=== PATIENT | male | born 1935 | race Caucasian/White ===

== ENCOUNTER 2019-04-14 14:27 | Emergency (ER) | payer MEDICARE, OTHER, SELFPAY ==
[2019-04-14 14:30] VITALS: BP 137/81; PULSE 70; RESP 20; TEMP 36.9; O2SAT 99; BMI 28.1
--- NOTE | 2019-04-14 14:59 | DI.RAD.S_ITS ---
PROCEDURE: XR CHEST 2V INDICATIONS: dyspnea, orthopnea, hx of CHF TECHNIQUE: 2 views of the chest were acquired. COMPARISON: [facility], , CHEST 1 VIEW, 08/20/2011, 13:18. [facility], , CHEST 1 VIEW, 08/19/2011, 14:50. CT chest, abdomen and pelvis 08/24/2011. FINDINGS: Surgical changes and devices: None. Lungs and pleura: Prominent pulmonary vasculature. No pleural effusions or pneumothorax. Mediastinum: Mediastinal contours are normal. Heart size is normal. Bones and chest wall: No suspicious bony abnormalities. Soft tissues appear unremarkable. IMPRESSION: Prominent pulmonary vasculature. Dictated by: Herrera Pina M.D. on 04/14/2019 at 15:59 Approved by: Herrera Pina M.D. on 04/14/2019 at 16:01
--- NOTE | 2019-04-14 14:59 | DI.RAD.S_ITS ---
PROCEDURE: XR ABDOMEN MIN 2V INDICATIONS: abdominal distention TECHNIQUE: 2 views of the abdomen were acquired. COMPARISON: [facility], , ABDOMEN 1 VIEW, 04/10/2011, 14:06. CT chest, abdomen and pelvis 08/24/2011. FINDINGS: Surgical changes and devices: Percutaneous right nephrostomy tube or less likely drainage catheter in the right abdomen. IVC filter. Left double-J ureteral stent. Bowel: Prominent gas-filled colon in the midabdomen. No pneumoperitoneum identified. No air-fluid levels demonstrated. Soft tissues: No masses; visualized solid organ contours appear normal in size. No suspicious abdominal calcifications. 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 No suspicious bony abnormalities. Heterotopic ossification in the right groin. IMPRESSION: 1. Marked colonic gaseous distention in the lower abdomen. This could be due to ileus, megacolon, or obstruction from volvulus. -CT abdomen and pelvis if prior performed outside would be helpful for further evaluation. 2. Tubes and lines project in the expected locations. Dictated by: Herrera Pina M.D. on 04/14/2019 at 16:01 Approved by: Herrera Pina M.D. on 04/14/2019 at 16:08
[2019-04-14 15:13] LABS: Add Manual Diff / Slide Review NO; Basophils Absolute Auto 100 /uL (0-100); Eosinophils Absolute Auto 100 /uL (0-450); Eosinophils Percent Auto 0.8 % (2-4); Hematocrit 36.4 % (41-53); Lymphocytes Absolute Auto 800 /uL (1100-4500); Lymphocytes Percent Auto 9.1 % (25-40); Mean Corpuscular Hemoglobin 31.4 PG (26-34); Mean Corpuscular Volume 95.1 fL (80-100); Monocytes Absolute Auto 700 /uL (0-900); Neutrophils Absolute Auto 7600 /uL (1500-7000); Neutrophils Percent Auto 81.1 % (50-75); Platelet Count 320 X10^3/uL (150-400); Red Blood Cell Count 3.83 X10^6/uL (4.5-5.9); Red Cell Distribution Width 14.7 % (11.6-14.8); White Blood Cell Count 9.3 X10^3/uL (4.5-11.0)
[2019-04-14 15:18] LABS: Alanine Aminotransferase 25 IU/L (21-72); Albumin 4.1 g/dL (3.5-5.0); Albumin Globulin Ratio 1.2 (1.0-2.8); Alkaline Phosphatase 96 U/L (38-126); Aspartate Aminotransferase 37 IU/L (17-59); BUN Creatinine Ratio 28.7 (6-22); Bilirubin Total 0.6 mg/dL (0.2-1.3); Blood Urea Nitrogen 43 mg/dL (9-20); Calcium 9.2 mg/dL (8.4-10.2); Carbon Dioxide 34 mmol/L (22-32); Chloride 99 mmol/L (98-107); Creatine Kinase 87 U/L (55-170); Estimated Glomerular Filt Rate 44.8 mL/min (>60); Globulin 3.5 g/dL (1.7-4.1); Glucose 131 mg/dL (80-110); HEMOLYSIS < 15 (0-50); Lipase 197 U/L (23-300); Potassium 4.8 mmol/L (3.4-5.1); Sodium 139 mmol/L (137-145); Total Protein 7.6 g/dL (6.3-8.2)
[2019-04-14 15:30] LABS: Troponin I 0.021 ng/mL (0.01-0.034)
[2019-04-14 15:43] LABS: B Type Natriuretic Peptide 239 (<100)
[2019-04-14 15:50] LABS: Bacteria Urine Occasional (0-1); Granular Casts Urine 0-1/LPF; Hyaline Casts Urine 0-1/LPF; RBC Urine 30-100/HPF (0-5/HPF); Renal Epithelial Cells Urine 0-1/HPF (0-1/HPF); Squamous Epithelial Cell Urine 1-5 /HPF (0-5/HPF); Transitional Epi Cells Urine 0-1/HPF (0-5/HPF); WBC Urine 30-100/HPF (0-5/HPF)
[2019-04-14 15:51] LABS: Culture Indicated Urine Specimen Cultured; Other Casts Urine Mixed Cellular Casts
--- NOTE | 2019-04-14 16:24 | DI.CT.S_ITS ---
PROCEDURE: CT ABDOMEN PELVIS W CON INDICATIONS: abd distention, dyspnea, orthopnea TECHNIQUE: After the administration of oral and intravenous contrast, 5 mm thick sections acquired from the diaphragms to the symphysis. 5 mm thick coronal and sagittal reformats were performed. For radiation dose reduction, the following was used: automated exposure control, adjustment of mA and/or kV according to patient size. COMPARISON: [facility], CT, CHEST ABDOMEN PELVIS WITH CONTRAST, 08/24/2011, 13:02. [facility], CR, XR ABDOMEN MIN 2V, 04/14/2019, 15:02. FINDINGS: Image quality: Excellent. ABDOMEN: Lung bases: Lung bases are clear. Heart size is enlarged. Solid organs: Liver is normal in size and enhancement. Gallbladder is not visualized. Biliary system is non-dilated. Pancreas enhances normally. Spleen is normal in size and enhancement. No adrenal nodules. Demonstrate bilateral cysts mildly enlarged compared to prior exam and the largest is present on the right measuring 49 mm. Right-sided nephrostomy tube is present with distal tip in the renal pelvis. There is no hydronephrosis. The right kidney demonstrates mild hydronephrosis and proximal hydroureter. Double-J stent is present. Distal tip appears to be along the margin of the lumen at the bladder wall. However, bladder is poorly distended with a diffusely thickened wall and Forrest catheter. Proximal tip is identified within the renal pelvis. This is new compared to 2012. Peritoneum and bowel: Significant stool is present throughout the colon particularly within the ascending and transverse colon. There mildly dilated fluid filled loops of small bowel identified within the mid abdomen. Transition point is not clearly identified.. Nodes and vessels: No retroperitoneal or mesenteric adenopathy. Aorta and inferior vena cava are normal in caliber. Inferior vena cava filter is present. As note several of the prongs appear at the medial vena cava wall possibly extending beyond the wall. Overall appearance has not changed. Miscellaneous: No ventral hernias. PELVIS: Genitourinary: Bladder wall thickness is normal. Miscellaneous: No inguinal hernias or adenopathy. Bones: No suspicious bony lesions. No vertebral body compression fractures. Previous right hip surgical change. IMPRESSION: 1. Dilated fluid-filled loops of small bowel consistent with partial small bowel obstruction. This may be secondary to constipation. However, no definitive transition point is identified. 2. Right nephrostomy tube. Left ureterovesicular stone with mild hydronephrosis and proximal hydroureter. Dictated by: Fabiana Gomez M.D. on 04/14/2019 at 17:38 Approved by: Fabiana Gomez M.D. on 04/14/2019 at 17:47
--- NOTE | 2019-04-14 16:25 | ED_ITS ---
HPI - Abdominal Pain <JEOVANY Arredondo - Last Filed: 04/15/19 00:06> General Chief Complaint: Abdominal Pain Stated Complaint: ABD Distention Time Seen by Provider: 04/14/19 14:29 Source: EMS Mode of arrival: EMS Limitations: no limitations and physical limitation History of Present Illness HPI narrative: This is a 83-year-old male, nonsmoker, who presents to ED via EMS from [facility] with orthopnea, dyspnea with little exertion, abdominal distension for last 2 days. 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 Patient denies nausea, vomiting, fever or chills. Patient noticed 14 lb of weight gain over 4 days. Patient reports no flatulence for last 24 hours and he felt improved when he passes gas. Patient recently was diagnosed with CHF, AFib, acute kidney injury from prolonged use of Bactrim for about 10 years and has right side nephrostomy at [facility] and right-sided kidney along Forrest in placed. He had multiple right hip dislocations and had femur fracture and other complications such as infection. His highest creatinine level was 9 and now is close to 1.0 according to patient. The patient reports his bowel habits about every 4 days but since his stay at [facility], they have been treating him with bowel regimen that he goes to bowel movement frequently with loose stool. Patient reports last bowel movement was about 1 hour ago prior coming into ED. Related Data Home Medications Medication Instructions Recorded Confirmed digoxin [Lanoxin] 0.125 mg PO DAILY #0 08/19/11 04/14/19 diltiazem HCl [Tiazac] 120 mg PO DAILY #0 08/19/11 04/14/19 acetaminophen 975 mg PO TID 04/14/19 04/14/19 apixaban [Eliquis] 5 mg PO BID 04/14/19 04/14/19 bisacodyl 5 - 10 mg PO PRN PRN 04/14/19 04/14/19 bisacodyl 10 mg SD PRN PRN 04/14/19 04/14/19 cephalexin 500 mg PO BID 04/14/19 04/14/19 furosemide 40 mg PO DAILY 04/14/19 04/14/19 levothyroxine 150 mcg PO DAILY 04/14/19 04/14/19 magnesium hydroxide [Milk of 2,400 mg PO PRN PRN 04/14/19 04/14/19 Magnesia] melatonin 3 mg PO BEDTIME 04/14/19 04/14/19 oxycodone 5 mg PO Q4-6H PRN 04/14/19 04/14/19 potassium chloride 10 meq PO BID 04/14/19 04/14/19 sennosides [senna] 17.2 mg PO BID 04/14/19 04/14/19 sodium phosphates [Fleet Enema] 118 ml SD PRN PRN 04/14/19 04/14/19 Allergies Allergy/AdvReac Type Severity Reaction Status Date / Time No Known Drug Allergies Allergy Verified 04/14/19 16:21 Review of Systems <JEOVANY Arredondo - Last Filed: 04/15/19 00:06> Review of Systems Narrative: General: Denies fever, chills, fatigue, malaise, sweats. HEENT: Denies sinus pain, ear pain, sore throat, difficulty swallowing, dizziness. Respiratory: See HPI Cardiovascular: Denies chest pain, palpitations, orthopnea, edema. Gastrointestinal: See HPI : See HPI Musculoskeletal: Denies weakness, joint pain or bony pain. Skin: Denies rash, skin lesions, or other. Neurologic: Denies weakness, headache, numbness, change in speech, confusion, seizures, incoordination. Psychiatric: No concerning psychosocial issues. 12-point review of systems is negative except for those stated above. Patient History <JEOVANY Arredondo - Last Filed: 04/15/19 00:06> Social History Smoking Status: Never smoker Substance Use Type: does not use Exam <JEOVANY Arredondo - Last Filed: 04/15/19 00:06> Narrative Exam Narrative: GEN: Alert, oriented x 3, well appearing and nourished, and in no acute distress. Head: Normal cephalic, atraumatic. No scalp or temporal tenderness, palpable mass or rash. EYES: Pupils are equal, round, and reactive to light and accommodation. Extraocular muscles are intact bilaterally. There is no subconjunctival hemorrhage, exudate and sclera non-icteric. ENT: Bilateral auditory canals and tympanic membranes clear. Hearing grossly intact. Nose without bleeding, purulent discharge or deviation. Facial sinuses nontender to palpate. Mucous membrane moist, no mucosal lesion. Throat without erythema, tonsillar hypertrophy or exudate. Uvula in midline, airway patent. Neck: Trachea in midline. No JVD, non-tender without lymphadenopathy. No masses or thyroid megaly. Supple, non-tender and no meningeal signs. CARDIAC: Irregular rhythm without murmurs, gallops, or rubs. No chest wall tenderness. No peripheral edema, cyanosis or pallor. Capillary refill is less than 2 seconds. RESPIRATORY: Lungs are clear to auscultate bilaterally. No cough, wheezes, rales, or rhonchi. No stridor, respiratory distress, increase work of breathing, or accessary muscle used. ABD: Abdomen distended, active bowel sounds in all quadrant, mild discomfort with palpation in left quadrants. No guarding or rebound tenderness to palpate. There is no palpable masses or organomegaly. EXT: Patient mostly bed bounded with history of left hip dislocation surgery. Full painless ROM of other extremities with no loss of sensation, strength, effusion or edema. SKIN: Warm, dry, pale for patient. No erythema, lesions or rash over visible areas. BACK: Nontender without deformity or crepitance. No flank tenderness. NEUROLOGICAL: Alert and oriented to place, time and person. Sensation and motor function intact bilaterally. No facial droops, dysphasia. PSYCHIATRIC: Good judgement and reason, without hallucinations, abnormal affect or abnormal behaviors during the examination. Patient is not suicidal. Initial Vital Signs Initial Vital Signs: Vital Signs Temperature 98.5 F 04/14/19 14:30 Pulse Rate 70 04/14/19 14:30 Respiratory Rate 20 04/14/19 14:30 Blood Pressure 137/81 04/14/19 14:30 Pulse Oximetry 99 04/14/19 14:30 <Yoni Laws DO - Last Filed: 04/17/19 07:04> Initial Vital Signs Initial Vital Signs: Vital Signs Temperature 98.5 F 04/14/19 14:30 Pulse Rate 70 04/14/19 14:30 Respiratory Rate 20 04/14/19 14:30 Blood Pressure 137/81 04/14/19 14:30 Pulse Oximetry 99 04/14/19 14:30 Procedures <JEOVANY Arredondo - Last Filed: 04/15/19 00:06> Rectal Disimpaction Time out performed rectal disimpaction: Yes Indication: fecal impaction Procedural Sedation: No Sedation/Analgesia: none Technique: manual disimpaction with gloved finger Patient Tolerated Procedure: Well Complications: none Additional Comments: Patient was able to pass gas and had loose stool. No impacted stool felt during exam. Patient felt improved. Scores <Lorenzo PalJEOVANY jaeger - Last Filed: 04/15/19 00:06> GCS Rossana coma scale eye opening: Spontaneous [place] coma scale verbal response: Orientated [place] coma scale motor response: Obey commands [place] coma scale total score: 15 Course <Lorenzo PalJEOVANY jaeger - Last Filed: 04/15/19 00:06> Orders Ordered: Discontinued Medications Sodium Chloride (Normal Saline 0.9%) 1,000 mls @ 125 mls/hr IV CONT YOUNG Last Infusion: 04/14/19 20:14 Dose: 125 mls/hr Documented by: Infusion: 04/14/19 19:39 Dose: 125 mls/hr Documented by: Admin: 04/14/19 17:35 Dose: 125 mls/hr Documented by: RASHARD Oxycodone HCl (Percolone) 5 mg PO NOW ONE Stop: 04/14/19 17:08 Last Admin: 04/14/19 17:36 Dose: 5 mg Documented by: RSTONE Reevaluation(s) Reevaluation #1: no distress, discussed plan of CT of abdomen with oral contrast Time: 16:25 Consultations Consultation #1: Dr. Centeno-Xray findings and CT plan with oral contrast Time: 16:26 Consultation #2: Dr. Centeno- No surgical intervention is needed and needs bowel regimen for constipation Time: 18:12 Vital Signs Vital signs: Vital Signs - 8 hr 04/14/19 17:08 04/14/19 20:16 Temperature 98.0 F Pulse Rate 63 78 Respiratory Rate 21 20 Blood Pressure 110/67 Blood Pressure [Left Arm] 111/79 Pulse Oximetry 98 <Yoni Laws DO - Last Filed: 04/17/19 07:04> Orders Ordered: Discontinued Medications Sodium Chloride (Normal Saline 0.9%) 1,000 mls @ 125 mls/hr IV CONT YOUNG Last Infusion: 04/14/19 20:14 Dose: 125 mls/hr Documented by: Infusion: 04/14/19 19:39 Dose: 125 mls/hr Documented by: Admin: 04/14/19 17:35 Dose: 125 mls/hr Documented by: RASHARD Oxycodone HCl (Percolone) 5 mg PO NOW ONE Stop: 04/14/19 17:08 Last Admin: 04/14/19 17:36 Dose: 5 mg Documented by: RASHARD Vital Signs Vital signs: Vital Signs - 8 hr 04/14/19 17:08 04/14/19 20:16 Temperature 98.0 F Pulse Rate 63 78 Respiratory Rate 21 20 Blood Pressure 110/67 Blood Pressure [Left Arm] 111/79 Pulse Oximetry 98 MDM - Abdominal Pain <Lorenzo JEOVANY Webber - Last Filed: 04/15/19 00:06> Differential Diagnosis Differential diagnosis: Likely abdominal pain, small bowel obstruction and other (Constipation, CHF) Medical Records Attestation: I reviewed the patient's medical records. Lab Data Attestation: I reviewed the patient's lab results. Result diagrams: 04/14/19 14:45 04/14/19 14:45 Labs: Lab Results 04/14/19 04/14/19 04/14/19 Range/Units 14:45 14:45 15:10 WBC 9.3 (4.5-11.0) X10^3/uL RBC 3.83 L (4.5-5.9) X10^6/uL Hgb 12.0 L (13.5-17.5) g/dL Hct 36.4 L (41-53) % MCV 95.1 (80-100) fL MCH 31.4 (26-34) PG MCHC 33.0 (30-36) % RDW 14.7 (11.6-14.8) % Plt Count 320 (150-400) X10^3/uL Neut % (Auto) 81.1 H (50-75) % Lymph % (Auto) 9.1 L (25-40) % Glynn % (Auto) 8.0 (3-14) % Eos % (Auto) 0.8 L (2-4) % Baso % (Auto) 1.0 (0-2) % Neut # (Auto) 7600 H (7899-2061) /uL Lymph # (Auto) 800 L (5618-6720) /uL Glynn # (Auto) 700 (0-900) /uL Eos # (Auto) 100 (0-450) /uL Baso # (Auto) 100 (0-100) /uL Sodium 139 (137-145) mmol/L Potassium 4.8 (3.4-5.1) mmol/L Chloride 99 (98-107) mmol/L Carbon Dioxide 34 H (22-32) mmol/L BUN 43 H (9-20) mg/dL Creatinine 1.50 H (0.66-1.25) mg/dL Estimated GFR 44.8 L (>60) mL/min BUN/Creatinine Ratio 28.7 H (6-22) Glucose 131 H (80-110) mg/dL Calcium 9.2 (8.4-10.2) mg/dL Total Bilirubin 0.6 (0.2-1.3) mg/dL AST 37 (17-59) IU/L ALT 25 (21-72) IU/L Alkaline Phosphatase 96 (38-126) U/L Total Creatine Kinase 87 (55-170) U/L CK-MB (CK-2) TNP CK-MB (CK-2) Rel Index TNP Troponin I 0.021 (0.01-0.034) ng/mL B-Natriuretic Peptide 239 H (<100) Total Protein 7.6 (6.3-8.2) g/dL Albumin 4.1 (3.5-5.0) g/dL Globulin 3.5 (1.7-4.1) g/dL Albumin/Globulin Ratio 1.2 (1.0-2.8) Lipase 197 (23-300) U/L Urine RBC 30-100/hpf H (0-5/HPF) Urine WBC 30-100/hpf H (0-5/HPF) Ur Squamous Epith Cells 1-5 /hpf (0-5/HPF) Ur Transition Epith Cell 0-1/hpf (0-5/HPF) Ur Renal Epithelial Cell 0-1/hpf (0-1/HPF) Urine Bacteria Occasional (0-1) (None) Hyaline Casts 0-1/lpf (None) Granular Casts 0-1/lpf (None) Other Casts Mixed cellular casts Ur Culture Indicated? Specimen cultured Point of care testing: Urine Dip Bedside Urine Glucose Negative Bedside Urine Bilirubin - Negative Bedside Urine Ketone - Negative Urine Specific [place] 1.010 Bedside Urine Occult Blood +++ Bedside Urine pH 5.5 Bedside Urine Protein + 30 Bedside Urine Urobilinogen +/- 1mg Bedside Urine Nitrite - Negative Bedside Urine Leukocytes ++ 125 Esterase ECG Data Attestation: I personally reviewed and interpreted this ECG as follows: Prior ECG tracings: not available for review Interpretation: AFib rate in 59 with slow ventricular response No ST elevation or depression. QT/QTc 403/403. MDM Narrative Medical decision making narrative: This is a 83-year-old gentleman who presents to ED with abdominal distension, orthopnea, dyspnea and frequent loose stool with history of constipation. Patient denies fever, chills, nausea or vomiting. Physical exam showed distended abdomen with active bowel sounds in all quadrant with mild discomfort with deep palpation in left quadrants. Patient takes oxycodone 5 mg strict q.4 hours for pain. Given patient's recent history of CHF and patient's symptoms, cardiac enzymes and BNP was obtained. Those tests were unremarkable and patient denies chest pain. Patient has history of AFib and today's EKG showed AFib with slow ventricular response. Prominent pulmonary vasculature with normal heart size. AAS showed marked colonic gaseous distension in lower abdomen this could be due to ileus, volvurus or megacolon and CT test was was suggested. WBC was normal with mildly increased neutrophil and mildly decreased H&H. CMP showed mild dehydration with creatinine of 1.5 and GFR of 44.8. There is no recent lab test result since 2011 in our records. However, patient stated that his kidney function has been improving close to 1.0 from 9.0 in the past. Abdomen/pelvis CT shows significant stool is present throughout the colon with mildly dilated fluid-filled loops of small bowel within the mid abdomen indicating partial small-bowel obstruction secondary to constipation. Patient has been draining urine through nephrostomy and Forrest catheter while in ED. Patient was gently hydrated with IV fluid prior and after CT. Attempted digital disimpaction, patient was able to pass flatulence with some liquid stools. There was no hard stool felt. Patient reports feeling slightly improved after this procedure. Dr. Centeno was consulted and I was informed that patient's condition is not candidate for surgical intervention. Findings were discussed with patient and family members. Patient advised continue with several different medications of bowel regimen and continue with clear liquid diet for next 1-2 days. O2 sat was 98% in RA with afebrile and normal tensive. Strict return precautions were discussed with the patient. Patient and family member is agrees with treatment plan and verbalized understanding. Patient was transferred back to [facility] for continued care. <Yoni Eusebia, DO - Last Filed: 04/17/19 07:04> Lab Data Labs: Lab Results 04/14/19 04/14/19 04/14/19 Range/Units 14:45 14:45 15:10 WBC 9.3 (4.5-11.0) X10^3/uL RBC 3.83 L (4.5-5.9) X10^6/uL Hgb 12.0 L (13.5-17.5) g/dL Hct 36.4 L (41-53) % MCV 95.1 (80-100) fL MCH 31.4 (26-34) PG MCHC 33.0 (30-36) % RDW 14.7 (11.6-14.8) % Plt Count 320 (150-400) X10^3/uL Neut % (Auto) 81.1 H (50-75) % Lymph % (Auto) 9.1 L (25-40) % Glynn % (Auto) 8.0 (3-14) % Eos % (Auto) 0.8 L (2-4) % Baso % (Auto) 1.0 (0-2) % Neut # (Auto) 7600 H (1143-6203) /uL Lymph # (Auto) 800 L (0181-9406) /uL Glynn # (Auto) 700 (0-900) /uL Eos # (Auto) 100 (0-450) /uL Baso # (Auto) 100 (0-100) /uL Sodium 139 (137-145) mmol/L Potassium 4.8 (3.4-5.1) mmol/L Chloride 99 (98-107) mmol/L Carbon Dioxide 34 H (22-32) mmol/L BUN 43 H (9-20) mg/dL Creatinine 1.50 H (0.66-1.25) mg/dL Estimated GFR 44.8 L (>60) mL/min BUN/Creatinine Ratio 28.7 H (6-22) Glucose 131 H (80-110) mg/dL Calcium 9.2 (8.4-10.2) mg/dL Total Bilirubin 0.6 (0.2-1.3) mg/dL AST 37 (17-59) IU/L ALT 25 (21-72) IU/L Alkaline Phosphatase 96 (38-126) U/L Total Creatine Kinase 87 (55-170) U/L CK-MB (CK-2) TNP CK-MB (CK-2) Rel Index TNP Troponin I 0.021 (0.01-0.034) ng/mL B-Natriuretic Peptide 239 H (<100) Total Protein 7.6 (6.3-8.2) g/dL Albumin 4.1 (3.5-5.0) g/dL Globulin 3.5 (1.7-4.1) g/dL Albumin/Globulin Ratio 1.2 (1.0-2.8) Lipase 197 (23-300) U/L Urine RBC 30-100/hpf H (0-5/HPF) Urine WBC 30-100/hpf H (0-5/HPF) Ur Squamous Epith Cells 1-5 /hpf (0-5/HPF) Ur Transition Epith Cell 0-1/hpf (0-5/HPF) Ur Renal Epithelial Cell 0-1/hpf (0-1/HPF) Urine Bacteria Occasional (0-1) (None) Hyaline Casts 0-1/lpf (None) Granular Casts 0-1/lpf (None) Other Casts Mixed cellular casts Ur Culture Indicated? Specimen cultured Point of care testing: Urine Dip Bedside Urine Glucose Negative Bedside Urine Bilirubin - Negative Bedside Urine Ketone - Negative Urine Specific [place] 1.010 Bedside Urine Occult Blood +++ Bedside Urine pH 5.5 Bedside Urine Protein + 30 Bedside Urine Urobilinogen +/- 1mg Bedside Urine Nitrite - Negative Bedside Urine Leukocytes ++ 125 Esterase Discharge Plan Departure Patient Disposition: Home Clinical Impression: Partial bowel obstruction Qualifiers: Intestinal obstruction type: unspecified Qualified Code(s): K56.600 - Partial intestinal obstruction, unspecified as to cause Constipation Qualifiers: Constipation type: unspecified constipation type Qualified Code(s): K59.00 - Constipation, unspecified Discharge Date/Time: 04/14/19 20:18 Activity Restrictions/Additional Instructions: You have been diagnosed with [abdominal distension. Your creatinine level is 1.5 with GFR of 44.8. Your urine test shows possible infection and you are alr irina on Keflex antibiotic medication which is good for bladder infection. The urine is being cultured at this time and you will get a phone call if you need a different type of antibiotic medication coverage. BNP was 239 and chest xray showed prominent pulmonary vasculature but no pneumonia or pleural effusion. CT test of abdomen shows partial small bowel obstruction possibly secondary to constipation. There was no hard stool felt during this impaction. General surgeon had viewed your CAT scan and states no surgery is needed]. What to do: *Take your medications as directed. Please continue with her bowel regimen medications. Please stay on liquid diet for next 24 to 48 hours. *Follow up with your primary care provider in 2-3 days, call for an appointment. Let them know you were seen in the ED and that we asked you to be seen in follow up. *Return to ED if you have any new, worsening, or concerning symptoms, such as increasing abdominal pain, fever, unable to tolerate fluids, chest pain, increasing breathing difficulty, no urine output for prolonged time or any acute concerns Prescriptions: No Action diltiazem HCl [Tiazac] 120 MG capsule,extended release 24 hr 120 mg PO DAILY Qty: 0 RF: 0 digoxin [Lanoxin] 125 MCG tablet 0.125 mg PO DAILY Qty: 0 RF: 0 furosemide 40 mg tablet 40 mg PO DAILY RF: 0 potassium chloride 10 mEq tablet extended release 10 meq PO BID RF: 0 levothyroxine 150 mcg tablet 150 mcg PO DAILY RF: 0 oxycodone 5 mg tablet 5 mg PO Q4-6H PRN (Reason: pain) RF: 0 Eliquis 5 mg tablet 5 mg PO BID RF: 0 sennosides [senna] 8.6 mg Tablet 17.2 mg PO BID RF: 0 acetaminophen 325 mg Tablet 975 mg PO TID RF: 0 melatonin 3 mg Tablet 3 mg PO BEDTIME RF: 0 cephalexin 500 mg Capsule 500 mg PO BID RF: 0 magnesium hydroxide [Milk of Magnesia] 400 mg/5 mL Suspension 2,400 mg PO PRN PRN (Reason: Constipation) RF: 0 bisacodyl 10 mg Suppository 10 mg SD PRN PRN (Reason: Constipation) RF: 0 Fleet Enema 19-7 gram/118 mL Enema 118 ml SD PRN PRN (Reason: Constipation) RF: 0 bisacodyl 5 mg Tablet 5 - 10 mg PO PRN PRN (Reason: mild to severe constipation) RF: 0 Referrals: Patrice Hogue MD [Primary Care Provider] - <Yoni Laws DO - Last Filed: 04/17/19 07:04> Sign Out Provider Sign Out Attestation: I was available for consultation during this patient's emergency department visit. This chart is signed by myself for administrative purposes only. I did not have direct contact with this patient during this visit. They were seen independently by the APC.
[2019-04-14 17:08] VITALS: BP 111/79; PULSE 63; RESP 21; O2SAT 98
[2019-04-14] MEDS: SODIUM CHLORIDE 0.9% 1,000 ML 125 ML IV (17:35)
[2019-04-14] MEDS: OXYCODONE IR 5 MG TABLET PO (17:36)
[2019-04-14 20:16] VITALS: BP 110/67; PULSE 78; RESP 20; TEMP 36.7
== END 2019-04-14 20:18 | disposition home or self-care (01) ==
PROVIDERS: Emergency Provider Nurse Practitioner Family; PCP Student in an Organized Health Care Education/Training Program
DX: K56.600 Partial intestinal obstruction, unspecified as to cause (principal); K59.00 Constipation, unspecified; R06.00 Dyspnea, unspecified; R06.01 Orthopnea; I50.9 Heart failure, unspecified
CPT/HCPCS: 36415; 71046; 74019; 74177; 80053; 81003; 81015; 82550; 83690; 83880; 84484; 85025; 87086; 93005; 96360; 96361; 99283; 99285

== ENCOUNTER 2019-05-03 10:26 | Emergency (ER) | payer MEDICARE, OTHER, SELFPAY ==
[2019-05-03] VITALS (29 sets, daily range): BP systolic 79–168; BP diastolic 49–150; PULSE 71–112; RESP 14–96; TEMP 37.5–39.7; O2SAT 92–100
--- NOTE | 2019-05-03 10:29 | ED.GENADULT ---
HPI - General Adult General Chief complaint: Fever Stated complaint: Fever Time Seen by Provider: 05/03/19 10:28 Source: patient and EMS Mode of arrival: EMS Limitations: altered mental status History of Present Illness HPI narrative: Patient is an 83-year-old male who arrives by EMS from [facility] for evaluation of fever and altered mental status. He does arrive with a POLST form stating that he is a full code with full treatment. It appears that the patient was admitted to the rehab facility on the 07 of April after being admitted to [facility] for what appears to be issues with his kidneys. He arrives today with an indwelling Forrest catheter, right-sided nephrostomy tube. 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 His also reports of atrial fibrillation. Patient is on Eliquis according to his medicine list. Patient was febrile upon arrival. He states that he is in the hospital however the city that he mentions is incorrect. He has no complaints he is unsure as to why he is here. Related Data Home Medications Medication Instructions Recorded Confirmed digoxin [Lanoxin] 0.125 mg PO DAILY #0 08/19/11 04/14/19 diltiazem HCl [Tiazac] 120 mg PO DAILY #0 08/19/11 04/14/19 acetaminophen 975 mg PO TID 04/14/19 04/14/19 apixaban [Eliquis] 5 mg PO BID 04/14/19 04/14/19 bisacodyl 5 - 10 mg PO PRN PRN 04/14/19 04/14/19 bisacodyl 10 mg VT PRN PRN 04/14/19 04/14/19 cephalexin 500 mg PO BID 04/14/19 04/14/19 furosemide 40 mg PO DAILY 04/14/19 04/14/19 levothyroxine 150 mcg PO DAILY 04/14/19 04/14/19 magnesium hydroxide [Milk of 2,400 mg PO PRN PRN 04/14/19 04/14/19 Magnesia] melatonin 3 mg PO BEDTIME 04/14/19 04/14/19 oxycodone 5 mg PO Q4-6H PRN 04/14/19 04/14/19 potassium chloride 10 meq PO BID 04/14/19 04/14/19 sennosides [senna] 17.2 mg PO BID 04/14/19 04/14/19 sodium phosphates [Fleet Enema] 118 ml VT PRN PRN 04/14/19 04/14/19 Allergies Allergy/AdvReac Type Severity Reaction Status Date / Time No Known Drug Allergies Allergy Verified 04/14/19 16:21 Review of Systems Review of Systems Narrative: Patient denies any complaints Constitutional Constitutional: Reports fever(s) (Reported from nursing facility) Cardiovascular Cardiovascular: Denies chest pain and Denies dyspnea Respiratory Respiratory: Denies dyspnea Gastrointestinal Gastrointestinal: Denies abdominal pain Musculoskeletal Musculoskeletal: Denies myalgias and Denies arthralgias Integumentary/Breasts Skin/Breast: Denies lesions and Denies rash Neurologic Neurologic: Denies behavioral changes Psychiatric Psychiatric: Denies behavioral changes Hematologic/Lymphatic Comments: On Eliquis Allergic/Immunologic Allergic/Immunologic: Denies urticaria Patient History Medical History Hip dislocation, right (Acute) Kidney failure (Acute) Kidney stone (Acute) Social History Smoking Status: Never smoker Substance Use Type: does not use Exam Initial Vital Signs Initial Vital Signs: Vital Signs Temperature 102.2 F H 05/03/19 10:32 Const General: cooperative, No in distress and ill appearing Orientation: alert, awake and confused HENDE Head: normal to inspection and normocephalic Resp Effort & Inspection: normal respiratory effort, not labored and not tachypneic Auscultation: clear to auscultation bilaterally Cardio Rate: tachycardic Rhythm: abnormal rhythm Pulses: radial pulses present GI Inspection: distended Palpation: soft, No firm and tender Other: Forrest catheter in place Back/Spine/Pelvis Other: Nephrostomy tube from right flank Skin Lesions: no lesions Rashes: no rashes Neuro General: alert and awake Cognition: abnormal cognition (Confused) Speech: speech normal Gait: normal gait Extrem General: normal to inspection and capillary refill normal Psych Appearance: grossly normal and well kempt Scores GCS [place] coma scale eye opening: Spontaneous [place] coma scale verbal response: Confused [place] coma scale motor response: Obey commands Ross[place] coma scale total score: 14 Course Orders Ordered: ED Orders 05/03/19 12:22 EKG-12 Lead Stat 05/03/19 13:08 CT head/brain wo con Stat 05/03/19 18:05 XR chest 1V Stat ABG [Arterial Blood Gas] Stat 05/03/19 18:30 Arterial Blood Gas Stat 05/03/19 19:23 Lactate (Lactic Acid) Stat Troponin I Stat 05/03/19 20:17 EKG-12 Lead Stat Apixaban (Eliquis) 5 mg PO BID [facility] Digoxin (Lanoxin) 0.125 mg PO DAILY [facility] Diltiazem HCl (Cardizem Cd) 120 mg PO DAILY [facility] Furosemide (Lasix) 40 mg PO DAILY [facility] Levofloxacin (Levaquin) 750 mg in 150 mls @ 100 mls/hr IV Q24H [facility] Last Infusion: 05/03/19 18:23 Dose: 0 mls/hr Documented by: Admin: 05/03/19 16:46 Dose: 100 mls/hr Documented by: RAMIN Sodium Chloride (Normal Saline 0.9%) 1,000 mls @ 75 mls/hr IV BOLUS ONE Stop: 05/04/19 06:45 Last Admin: 05/03/19 17:36 Dose: 75 mls/hr Documented by: WOOD Levothyroxine Sodium (Synthroid) 150 mcg PO 0600 [facility] Melatonin (Melatonin) 3 mg PO BEDTIME [facility] Oxycodone HCl (Percolone) 5 mg PO Q4HRWA [facility] Last Admin: 05/03/19 20:31 Dose: 5 mg Documented by: Admin: 05/03/19 17:22 Dose: Not Given Documented by: Admin: 05/03/19 16:46 Dose: 5 mg Documented by: RAMIN Potassium Chloride (Klor-Con M10) 10 meq PO BID [facility] Sennosides (Senna) 8.6 mg PO BID [facility] Last Admin: 05/03/19 18:54 Dose: Not Given Documented by: WOOD Discontinued Medications Acetaminophen (Tylenol) 650 mg PO NOW ONE Stop: 05/03/19 11:31 Last Admin: 05/03/19 11:37 Dose: Not Given Documented by: RAMIN Acetaminophen (Tylenol) 650 mg PO NOW ONE Stop: 05/03/19 13:57 Last Admin: 05/03/19 14:00 Dose: 650 mg Documented by: EL Furosemide (Lasix) 40 mg IV NOW ONE Stop: 05/03/19 18:53 Last Admin: 05/03/19 19:11 Dose: 40 mg Documented by: WOOD Sodium Chloride (Normal Saline 0.9%) 1,000 mls @ 1,000 mls/hr IV BOLUS ONE Stop: 05/03/19 11:28 Last Infusion: 05/03/19 12:38 Dose: 0 mls/hr Documented by: Admin: 05/03/19 11:28 Dose: 1,000 mls/hr Documented by: RAMIN Ceftriaxone Sodium/Dextrose (Rocephin) 1 gm in 50 mls @ 100 mls/hr IV NOW ONE Stop: 05/03/19 11:42 Last Infusion: 05/03/19 12:02 Dose: 0 mls/hr Documented by: Admin: 05/03/19 11:28 Dose: 100 mls/hr Documented by: RAMIN Vancomycin HCl (Vancomycin) 1,000 mg in 200 mls @ 200 mls/hr IV NOW ONE Stop: 05/03/19 12:12 Last Infusion: 05/03/19 13:20 Dose: 0 mls/hr Documented by: Admin: 05/03/19 12:09 Dose: 200 mls/hr Documented by: RAMIN Sodium Chloride (Normal Saline 0.9%) 1,000 mls @ 1,000 mls/hr IV BOLUS ONE Stop: 05/03/19 19:49 Last Infusion: 05/03/19 19:10 Dose: 0 mls/hr Documented by: Admin: 05/03/19 18:54 Dose: 1,000 mls/hr Documented by: WOOD Lidocaine HCl (Urojet) 5 ml TOP NOW ONE Stop: 05/03/19 14:15 Last Admin: 05/03/19 14:33 Dose: 5 ml Documented by: EL Vital Signs Vital signs: Vital Signs - 8 hr 05/03/19 13:02 05/03/19 13:42 05/03/19 14:05 Temperature 103.4 F H Pulse Rate 91 H 86 Respiratory Rate 18 27 H Blood Pressure [Left Arm] 105/71 103/51 L Pulse Oximetry 95 97 05/03/19 14:11 05/03/19 14:50 05/03/19 15:04 Temperature Pulse Rate 88 91 H 91 H Respiratory Rate 24 25 H 21 Blood Pressure [Left Arm] 113/73 115/63 113/69 Pulse Oximetry 93 96 95 05/03/19 15:11 05/03/19 15:51 05/03/19 16:30 Temperature 99.5 F Pulse Rate 88 93 H Respiratory Rate 27 H 17 Blood Pressure [Left Arm] 106/53 L 103/68 Pulse Oximetry 95 93 05/03/19 17:00 05/03/19 17:30 05/03/19 17:45 Temperature 101.3 F H Pulse Rate 86 94 H 112 H Respiratory Rate 23 28 H 27 H Blood Pressure [Left Arm] 118/61 92/49 L 112/58 L Pulse Oximetry 97 95 100 05/03/19 18:06 05/03/19 18:21 05/03/19 18:45 Temperature Pulse Rate 112 H 100 H 112 H Respiratory Rate 28 H 22 26 H Blood Pressure [Left Arm] 96/60 90/50 L 79/55 L Pulse Oximetry 99 99 94 05/03/19 19:03 05/03/19 19:10 05/03/19 19:30 Temperature Pulse Rate 112 H 99 H 94 H Respiratory Rate 24 25 H 24 Blood Pressure [Left Arm] 104/51 L 122/63 112/51 L Pulse Oximetry 92 96 98 05/03/19 19:51 05/03/19 20:35 Temperature Pulse Rate 97 H 80 Respiratory Rate 24 24 Blood Pressure [Left Arm] 109/54 L 110/53 L Pulse Oximetry 98 95 Medical Decision Making Lab Data Lab results reviewed: Yes I reviewed the patient's lab results. Result diagrams: 05/03/19 10:58 05/03/19 10:58 Labs: Lab Results 05/03/19 05/03/19 05/03/19 Range/Units 10:50 10:58 10:58 WBC 12.1 H (4.5-11.0) X10^3/uL RBC 3.93 L (4.5-5.9) X10^6/uL Hgb 12.2 L (13.5-17.5) g/dL Hct 37.1 L (41-53) % MCV 94.4 (80-100) fL MCH 30.9 (26-34) PG MCHC 32.8 (30-36) % RDW 15.6 H (11.6-14.8) % Plt Count 174 (150-400) X10^3/uL Neut % (Auto) 89.3 H (50-75) % Lymph % (Auto) 3.6 L (25-40) % Sullivan % (Auto) 6.5 (3-14) % Eos % (Auto) 0.3 L (2-4) % Baso % (Auto) 0.3 (0-2) % Neut # (Auto) 64534 H (8347-2198) /uL Lymph # (Auto) 400 L (8012-3704) /uL Sullivan # (Auto) 800 (0-900) /uL Eos # (Auto) 0 (0-450) /uL Baso # (Auto) 0 (0-100) /uL PT 15.3 H (10.1-12.7) SECONDS INR 1.3 (0.9-1.3) APTT 38 H (26.4-36.2) SECONDS ABG pH (7.35-7.45) ABG pCO2 (35-45) mmHg ABG pO2 (80-100) mmHg ABG HCO3 (22-26) mmol/L ABG Total CO2 (21-31) mmol/L ABG O2 Saturation (95-100) % ABG Base Excess (-2-2) mmol/L FiO2 Sodium (137-145) mmol/L Potassium (3.4-5.1) mmol/L Chloride (98-107) mmol/L Carbon Dioxide (22-32) mmol/L BUN (9-20) mg/dL Creatinine (0.66-1.25) mg/dL Estimated GFR (>60) mL/min BUN/Creatinine Ratio (6-22) Glucose (80-110) mg/dL Lactate (0.7-2.1) mmol/L Calcium (8.4-10.2) mg/dL Total Bilirubin (0.2-1.3) mg/dL AST (17-59) IU/L ALT (<50) IU/L Alkaline Phosphatase (38-126) U/L Troponin I (0.01-0.034) ng/mL B-Natriuretic Peptide 286 H (<100) Total Protein (6.3-8.2) g/dL Albumin (3.5-5.0) g/dL Globulin (1.7-4.1) g/dL Albumin/Globulin Ratio (1.0-2.8) Lipase (23-300) U/L Procalcitonin (<0.5) ng/mL TSH (0.47-4.68) uIU/mL Urine Color Urine Appearance Urine pH (4.5-8.0) Ur Specific [place] (1.000-1.035) Urine Protein (Negative) Urine Glucose (UA) (Negative) g/dL Urine Ketones (NEGATIVE) Urine Occult Blood (Negative) Urine Nitrate (Negative) Urine Bilirubin (NEGATIVE) Urine Urobilinogen (0.2) E.U./dL Ur Leukocyte Esterase (NEGATIVE) Urine RBC (0-5/HPF) Urine WBC (0-5/HPF) Urine Bacteria (None) Ur Culture Indicated? Micro UA Comment Digoxin (0.8-2.0) ng/mL 05/03/19 05/03/19 05/03/19 Range/Units 10:58 10:58 10:58 WBC (4.5-11.0) X10^3/uL RBC (4.5-5.9) X10^6/uL Hgb (13.5-17.5) g/dL Hct (41-53) % MCV (80-100) fL MCH (26-34) PG MCHC (30-36) % RDW (11.6-14.8) % Plt Count (150-400) X10^3/uL Neut % (Auto) (50-75) % Lymph % (Auto) (25-40) % Sullivan % (Auto) (3-14) % Eos % (Auto) (2-4) % Baso % (Auto) (0-2) % Neut # (Auto) (9595-1882) /uL Lymph # (Auto) (9905-2038) /uL Sullivan # (Auto) (0-900) /uL Eos # (Auto) (0-450) /uL Baso # (Auto) (0-100) /uL PT (10.1-12.7) SECONDS INR (0.9-1.3) APTT (26.4-36.2) SECONDS ABG pH (7.35-7.45) ABG pCO2 (35-45) mmHg ABG pO2 (80-100) mmHg ABG HCO3 (22-26) mmol/L ABG Total CO2 (21-31) mmol/L ABG O2 Saturation (95-100) % ABG Base Excess (-2-2) mmol/L FiO2 Sodium 138 (137-145) mmol/L Potassium 4.8 (3.4-5.1) mmol/L Chloride 99 (98-107) mmol/L Carbon Dioxide 33 H (22-32) mmol/L BUN 29 H (9-20) mg/dL Creatinine 1.20 (0.66-1.25) mg/dL Estimated GFR 58.0 L (>60) mL/min BUN/Creatinine Ratio 24.2 H (6-22) Glucose 119 H (80-110) mg/dL Lactate 1.7 (0.7-2.1) mmol/L Calcium 9.4 (8.4-10.2) mg/dL Total Bilirubin 1.2 (0.2-1.3) mg/dL AST 28 (17-59) IU/L ALT 15 (<50) IU/L Alkaline Phosphatase 94 (38-126) U/L Troponin I (0.01-0.034) ng/mL B-Natriuretic Peptide (<100) Total Protein 7.7 (6.3-8.2) g/dL Albumin 4.2 (3.5-5.0) g/dL Globulin 3.5 (1.7-4.1) g/dL Albumin/Globulin Ratio 1.2 (1.0-2.8) Lipase 83 (23-300) U/L Procalcitonin 0.12 (<0.5) ng/mL TSH (0.47-4.68) uIU/mL Urine Color Urine Appearance Urine pH (4.5-8.0) Ur Specific [place] (1.000-1.035) Urine Protein (Negative) Urine Glucose (UA) (Negative) g/dL Urine Ketones (NEGATIVE) Urine Occult Blood (Negative) Urine Nitrate (Negative) Urine Bilirubin (NEGATIVE) Urine Urobilinogen (0.2) E.U./dL Ur Leukocyte Esterase (NEGATIVE) Urine RBC (0-5/HPF) Urine WBC (0-5/HPF) Urine Bacteria (None) Ur Culture Indicated? Micro UA Comment Digoxin (0.8-2.0) ng/mL 05/03/19 05/03/19 05/03/19 Range/Units 10:58 10:58 11:00 WBC (4.5-11.0) X10^3/uL RBC (4.5-5.9) X10^6/uL Hgb (13.5-17.5) g/dL Hct (41-53) % MCV (80-100) fL MCH (26-34) PG MCHC (30-36) % RDW (11.6-14.8) % Plt Count (150-400) X10^3/uL Neut % (Auto) (50-75) % Lymph % (Auto) (25-40) % Sullivan % (Auto) (3-14) % Eos % (Auto) (2-4) % Baso % (Auto) (0-2) % Neut # (Auto) (3937-2805) /uL Lymph # (Auto) (8877-2144) /uL Sullivan # (Auto) (0-900) /uL Eos # (Auto) (0-450) /uL Baso # (Auto) (0-100) /uL PT (10.1-12.7) SECONDS INR (0.9-1.3) APTT (26.4-36.2) SECONDS ABG pH (7.35-7.45) ABG pCO2 (35-45) mmHg ABG pO2 (80-100) mmHg ABG HCO3 (22-26) mmol/L ABG Total CO2 (21-31) mmol/L ABG O2 Saturation (95-100) % ABG Base Excess (-2-2) mmol/L FiO2 Sodium (137-145) mmol/L Potassium (3.4-5.1) mmol/L Chloride (98-107) mmol/L Carbon Dioxide (22-32) mmol/L BUN (9-20) mg/dL Creatinine (0.66-1.25) mg/dL Estimated GFR (>60) mL/min BUN/Creatinine Ratio (6-22) Glucose (80-110) mg/dL Lactate (0.7-2.1) mmol/L Calcium (8.4-10.2) mg/dL Total Bilirubin (0.2-1.3) mg/dL AST (17-59) IU/L ALT (<50) IU/L Alkaline Phosphatase (38-126) U/L Troponin I (0.01-0.034) ng/mL B-Natriuretic Peptide (<100) Total Protein (6.3-8.2) g/dL Albumin (3.5-5.0) g/dL Globulin (1.7-4.1) g/dL Albumin/Globulin Ratio (1.0-2.8) Lipase (23-300) U/L Procalcitonin (<0.5) ng/mL TSH 4.88 H (0.47-4.68) uIU/mL Urine Color Yellow Red Urine Appearance Slightly cloudy Cloudy Urine pH 5.5 7.0 (4.5-8.0) Ur Specific [place] 1.010 1.010 (1.000-1.035) Urine Protein 2+ H 2+ H (Negative) Urine Glucose (UA) Negative Negative (Negative) g/dL Urine Ketones Negative Negative (NEGATIVE) Urine Occult Blood 3+ H 3+ H (Negative) Urine Nitrate Positive Negative (Negative) Urine Bilirubin Negative Negative (NEGATIVE) Urine Urobilinogen 0.2 0.2 (0.2) E.U./dL Ur Leukocyte Esterase 2+ H 3+ H (NEGATIVE) Urine RBC 30-100/hpf H >100/hpf (0-5/HPF) Urine WBC 30-100/hpf H 30-100/hpf H (0-5/HPF) Urine Bacteria Many (>30) H Moderate (10-30) H (None) Ur Culture Indicated? Culture not indicate Specimen cultured Micro UA Comment Digoxin 0.5 L (0.8-2.0) ng/mL 05/03/19 05/03/19 05/03/19 Range/Units 18:30 19:23 19:23 WBC (4.5-11.0) X10^3/uL RBC (4.5-5.9) X10^6/uL Hgb (13.5-17.5) g/dL Hct (41-53) % MCV (80-100) fL MCH (26-34) PG MCHC (30-36) % RDW (11.6-14.8) % Plt Count (150-400) X10^3/uL Neut % (Auto) (50-75) % Lymph % (Auto) (25-40) % Sullivan % (Auto) (3-14) % Eos % (Auto) (2-4) % Baso % (Auto) (0-2) % Neut # (Auto) (1332-3218) /uL Lymph # (Auto) (0712-9469) /uL Sullivan # (Auto) (0-900) /uL Eos # (Auto) (0-450) /uL Baso # (Auto) (0-100) /uL PT (10.1-12.7) SECONDS INR (0.9-1.3) APTT (26.4-36.2) SECONDS ABG pH 7.50 H (7.35-7.45) ABG pCO2 37.7 (35-45) mmHg ABG pO2 61 L (80-100) mmHg ABG HCO3 30 H (22-26) mmol/L ABG Total CO2 31 (21-31) mmol/L ABG O2 Saturation 93 L (95-100) % ABG Base Excess 6.0 H (-2-2) mmol/L FiO2 0.21 Sodium (137-145) mmol/L Potassium (3.4-5.1) mmol/L Chloride (98-107) mmol/L Carbon Dioxide (22-32) mmol/L BUN (9-20) mg/dL Creatinine (0.66-1.25) mg/dL Estimated GFR (>60) mL/min BUN/Creatinine Ratio (6-22) Glucose (80-110) mg/dL Lactate 1.3 (0.7-2.1) mmol/L Calcium (8.4-10.2) mg/dL Total Bilirubin (0.2-1.3) mg/dL AST (17-59) IU/L ALT (<50) IU/L Alkaline Phosphatase (38-126) U/L Troponin I 0.088 H (0.01-0.034) ng/mL B-Natriuretic Peptide (<100) Total Protein (6.3-8.2) g/dL Albumin (3.5-5.0) g/dL Globulin (1.7-4.1) g/dL Albumin/Globulin Ratio (1.0-2.8) Lipase (23-300) U/L Procalcitonin (<0.5) ng/mL TSH (0.47-4.68) uIU/mL Urine Color Urine Appearance Urine pH (4.5-8.0) Ur Specific [place] (1.000-1.035) Urine Protein (Negative) Urine Glucose (UA) (Negative) g/dL Urine Ketones (NEGATIVE) Urine Occult Blood (Negative) Urine Nitrate (Negative) Urine Bilirubin (NEGATIVE) Urine Urobilinogen (0.2) E.U./dL Ur Leukocyte Esterase (NEGATIVE) Urine RBC (0-5/HPF) Urine WBC (0-5/HPF) Urine Bacteria (None) Ur Culture Indicated? Micro UA Comment Digoxin (0.8-2.0) ng/mL Imaging Data Chest x-ray: Radiologist's impression: [address] [address] XRay Report Signed Patient: Mendel Sainz#: [id number] : 1935Acct:[id number] Age/Sex: 83 / MDate of Service: 05/03/19 Loc: ED Accession Number: [id number] Procedure: XR chest 1V Ordering Provider: Yoni Laws D.O. PROCEDURE: XR CHEST 1V INDICATIONS: fever and sepsis TECHNIQUE: One view of the chest was acquired. COMPARISON: [facility], , XR CHEST 2V, 04/14/2019, 15:02. FINDINGS: Surgical changes and devices: None. Lungs and pleura: There is an overall appearance of increased pulmonary vascularity. There is blunting and hazy opacity overlying the left costophrenic angle. Mild appearance of retrocardiac opacity is present. Mediastinum: Mediastinal contours appear normal. Heart size is enlarged. Bones and chest wall: No suspicious bony lesions. Overlying soft tissues appear unremarkable. IMPRESSION: Increased vascularity and left effusion suggestive of edema. Retrocardiac opacity is present which could represent focal edema. However, other etiologies such as developing airspace disease such as pneumonia and/or atelectasis cannot be excluded. Overall appearance is progressive compared to prior exam. Dictated by: Fabiana Gomez M.D. on 05/03/2019 at 11:04 Approved by: Fabiana Gomez M.D. on 05/03/2019 at 11:05 Pelvis x-ray: Radiologist's impression: [address] [address] XRay Report Signed Patient: Mendel Sainz#: [id number] : 6Acct:[id number] Age/Sex: 83 / MDate of Service: 05/03/19 Loc: ED Accession Number: [id number] Procedure: XR pelvis 1-2V Ordering Provider: Yoni Laws D.O. PROCEDURE: XR PELVIS 1-2V INDICATIONS: right hip infection TECHNIQUE: 2 view(s) of the pelvis acquired. COMPARISON: [facility], CT, CT ABDOMEN PELVIS W CON, 04/14/2019, 17:18. [facility], CR, PELVIS 1 OR 2 VIEWS, 08/19/2011, 14:50. FINDINGS: Bones: Unchanged appearance of chronic right hip deformity and postsurgical change. Severe left hip degenerative osteoarthritis is present. Soft tissues: Visualized bowel gas pattern is normal. No suspicious soft tissue calcifications. Partially visualized ureterovesicular stent is noted on the left. IMPRESSION: Chronic appearance right hip deformity and postsurgical change. If concern for infection exists, MRI is recommended. Dictated by: Fabiana Gomez M.D. on 05/03/2019 at 11:05 Approved by: Fabiana Gomez M.D. on 05/03/2019 at 11:07 CT scan - abdomen: Radiologist's impression: [place] [address] CT Scan Report Signed Patient: Mendel Sainz#: [id number] : 6Acct:[id number] Age/Sex: 83 / MDate of Service: 05/03/19 Loc: ED Accession Number: [id number] Procedure: CT abdomen pelvis w con Ordering Provider: Yoni Laws D.O. PROCEDURE: CT ABDOMEN PELVIS W CON INDICATIONS: Generalized abdominal pain and fever TECHNIQUE: After the administration of intravenous contrast, 5 mm thick sections acquired from the diaphragm to the symphysis. 5 mm coronal and sagittal reformats were acquired. For radiation dose reduction, the following was used: automated exposure control, adjustment of mA and/or kV according to patient size. COMPARISON: [facility], CT, CHEST ABDOMEN PELVIS WITH CONTRAST, 08/24/2011, 13:02. [facility], CT, CT ABDOMEN PELVIS W CON, 04/14/2019, 17:18. FINDINGS: Image quality: Diagnostic, with note made of motion artifact. There is streak artifact seen through the upper abdomen. ABDOMEN: Lung bases: Lung bases are clear. Heart size is moderately enlarged. Coronary artery calcifications are seen. Solid organs: Liver is normal in size and enhancement. Gallbladder appears small and shrunken. Biliary system is non dilated. Pancreas enhances normally. Spleen is normal in size and enhancement. No adrenal nodules. Kidneys demonstrate normal size and enhancement. There is a left-sided double-J stent seen. A right-sided percutaneous nephrostomy can be seen. There is moderate left-sided hydronephrosis is seen. Along the posterior aspect of the right kidney, there is a water density simple appearing cyst seen that measures 5.5 centimeters. Peritoneum and bowel: Bowel loops demonstrate normal wall thickness and caliber. No free fluid or air. There is a moderate amount of stool seen within the colon. Nodes and vessels: No retroperitoneal or mesenteric adenopathy by size criteria. Aorta and inferior vena cava are normal in size. An IVC filter is seen. Atherosclerotic calcification is noted. Miscellaneous: No ventral hernias. PELVIS: Genitourinary: A Forrest catheter is seen. Miscellaneous: No inguinal hernias or adenopathy. Bones: No suspicious bony lesions. No vertebral body compression fractures. 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 Degenerative changes are seen throughout, including involving the contralateral left hip and the lower lumbar spine. IMPRESSION: There is a moderate amount of stool seen within the colon. Please correlate with an underlying history of constipation. Right proximal femur chronic fracture, with absence of the right proximal femur and advanced degenerative change. Incidental note is made of: Moderate cardiomegaly Atherosclerotic calcification, including coronary artery calcification Left-sided double-J stent with moderate left-sided hydronephrosis Right-sided percutaneous nephrostomy 5.5 cm right kidney simple cyst IVC filter Forrest catheter Dictated by: Maximus Gonzalez M.D. on 05/03/2019 at 10:56 Approved by: Maximus Gonzalez M.D. on 05/03/2019 at 11:04 CT scan - head: Radiologist's impression: [address] [address] [address] Scan Report Signed Patient: Mendel Sainz#: [id number] : 6Acct:[id number] Age/Sex: 83 / MDate of Service: 05/03/19 Loc: ED Accession Number: [id number] Procedure: CT head/brain wo con Ordering Provider: Yoni Laws D.O. PROCEDURE: CT HEAD/BRAIN WO CON INDICATIONS: Altered mental status TECHNIQUE: Noncontrast 4.5 mm thick angled axial sections acquired from the foramen magnum to the vertex, with coronal and sagittal reformats. For radiation dose reduction, the following was used: automated exposure control, adjustment of mA and/or kV according to patient size. COMPARISON: [facility], CT, HEAD WITHOUT CONTRAST, 08/19/2011, 14:30. [facility], CT, BRAIN W/O CONTRAST, 11/02/2013, 12:24. FINDINGS: Image quality: IV contrast was given earlier in the day, which limits evaluation for detection of subtle intracranial hemorrhage CSF spaces: Basal cisterns are patent. No extra-axial fluid collections. The ventricles are symmetric in size and shape. Brain: No intracranial masses. No large amount of intracranial hemorrhage is detected. There is cerebral volume loss for age, with resultant ventricular and sulcal prominence. There are periventricular and deep white matter chronic small vessel ischemic changes. There is intracranial internal carotid artery atherosclerosis. Skull and face: Calvarium and visualized facial bones appear intact, without suspicious lesions. Sinuses: Fluid with internal calcification can be seen involving the sphenoid sinus. Visualized sinuses and mastoids are otherwise clear. IMPRESSION: Limited study demonstrating no significant intracranial abnormality for age. Note is made of age-appropriate brain parenchymal volume loss and chronic small vessel ischemic changes. Focal sphenoid sinus disease noted, which is more prominent than on prior studies. Dictated by: Maximus Gonzalez M.D. on 05/03/2019 at 12:46 Approved by: Maximus Gonzalez M.D. on 05/03/2019 at 12:49 Repeat chest x-ray: Radiologist's impression: [address] [id number] XRay Report Signed Patient: Mendel Sainz#: [id number] : 6Acct:[id number] Age/Sex: 83 / MDate of Service: 05/03/19 Loc: ED Accession Number: [id number] Procedure: XR chest 1V Ordering Provider: Yoni Lasw D.O. PROCEDURE: XR CHEST 1V INDICATIONS: tachypnea, verbalized increased shortness of breath. TECHNIQUE: One view of the chest was acquired. COMPARISON: [facility], CR, XR CHEST 1V, 05/03/2019, 10:40. FINDINGS: Surgical changes and devices: None. Lungs and pleura: Persistent appearance of retrocardiac and left basilar opacity. Mediastinum: Mediastinal contours appear normal. Heart size is mildly enlarged. Bones and chest wall: No suspicious bony lesions. Overlying soft tissues appear unremarkable. IMPRESSION: Persistent retrocardiac and left basilar opacity, minimally improved compared to prior exam. Finding is suggestive of airspace disease such as pneumonia with superimposed effusion. Dictated by: Fabiana Gomez M.D. on 05/03/2019 at 18:34 Approved by: Fabiana Gomez M.D. on 05/03/2019 at 18:34 ECG Data Attestation: I personally reviewed and interpreted this ECG as follows: Prior ECG tracings: not available for review Interpretation: Atrial fibrillation Ventricular rate 88 Normal axis Normal QRS Nonspecific ST T wave changes MDM Narrative Medical decision making narrative: I was able to talk with the PA from his nephrology group who he did have a visit with yesterday. The PA inform me that yesterday he had a normal white blood cell count. Upon review his BUN and creatinine today are similar to yesterday's. The PA told me that the patient has urine yesterday was not what I would describe it today. He does have what appears to be purulence urine with material in it. His head CT is unremarkable. His abdomen CT is unremarkable. Upon further review it looks like that he has been on Keflex for prophylaxis of a right hip prosthesis infection however x-ray of his right hip shows no infection. 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 I am unsure as to how long it has been since he has had that prosthesis removed. It appears he is nonweightbearing. His nursing facility where he is staying is unhelpful in providing any information about this. We were unable to talk with the patient's primary provider. I did discuss the case with the patient's building wrecker and the concern about his symptoms. I was able to find out that the patient does have left-sided ureteral stents in place along with a right-sided nephrostomy tube. Dr. Andre with the telling him Urology group is the patient's urologist. He is not combination window installer today however I was able to speak with him. He stated that he would recommend treating the patient as a urinary tract infection. Changing the patient's Forrest catheter which we did do here in the ER and observing the patient for any worsening of symptoms. He stated that he would not change the nephrostomy tube or the left-sided ureteral stents unless the patient's condition worsened. I discussed the case with the hospitalist at [facility] and telling him who stated that they would be happy to take the patient in transfer if the Urology group needed to intervene on the patient which they do not. I discussed the case with Dr. Gillis hospitalist at this facility who refuses to admit the patient stating that the patient needs to go to a place with subspecialist consultation. I called the hospitalist at [facility] back who stated that he did not feel the patient needed to be transferred to their facility since there is no subspecialist intervention needed currently. I do not feel the patient can go home. I do not feel that the patient should be transferred to another facility. He should need to be admitted to our facility or to [facility] where his urologist/building wrecker for continuity of care. We will continue to treat the patient here in the emergency department for his presumed urinary tract infection/sepsis until disposition can be worked out.. His medications that were on the list from the nursing facility ordered for him. Patient remained in the emergency department for approximately 9 hours. He was given an additional dose of Levaquin. He was given his home medications to include his scheduled pain medication. Patient never complained of any chest pain. He was complaining of shortness of breath. He did state that he feels better in a reclined position that sitting up. Repeat chest x-ray is somewhat concerning for retrocardiac infiltrate however no signs of heart failure. His BNP is slightly above 200. The antibiotics that he has already been administered would cover for potential pneumonia. ABG was obtained. PH 7.5 pCO2 37 PO2 61 bicarb 29.5 O2 saturation 93%. Patient was placed on nasal cannula secondary to his subjective shortness of breath. This did seem to help his symptoms. He was given a dose of IV Lasix. He did have 1 episode of hypotension with systolic blood pressures in the 70s. 500 cc bolus of fluid was given which increased his blood pressure. His map's have been hovering around 65. Repeat troponin shows it slightly more elevated than initial troponin. Repeat EKG continues to show atrial fibrillation. The ST depressions laterally seen on the initial EKG have improved somewhat. Again patient never complaining of chest pain. I do feel that over the past several hours that he has been here in the emergency department that his condition has worsened. He has had some further episodes of tachycardia. Did have the episode of hypotension. Review the case with the radiologist stated that she was concerned that potentially the left-sided ureteral stent could be occluded. Given the discussion that I had with the urologist earlier in the day who stated that he would consider changing the ureteral stent/nephrostomy tube if the condition worsens then I do think that that is the case that we have in he should be transferred to a facility that has Urology. With now his slight troponin like he would also benefit from facility that has cardiology capability. Patient has remained alert and oriented. I then discussed the case with Dr. Castillo hospitalist at [facility] who accepts the patient. I do feel the patient is stable for transport. Patient was informed of the need for transport he expressed understanding and agreement. Discharge Plan Departure Patient Disposition: [facility] Clinical Impression: Shortness of breath Urinary tract infection Qualifiers: Urinary tract infection type: site unspecified Hematuria presence: with hematuria Qualified Code(s): N39.0 - Urinary tract infection, site not specified Sepsis Qualifiers: Sepsis type: sepsis due to unspecified organism Sepsis acute organ dysfunction status: unspecified Qualified Code(s): A41.9 - Sepsis, unspecified organism Abdominal pain Qualifiers: Abdominal location: unspecified location Qualified Code(s): R10.9 - Unspecified abdominal pain Prescriptions: No Action diltiazem HCl [Tiazac] 120 MG capsule,extended release 24 hr 120 mg PO DAILY Qty: 0 RF: 0 digoxin [Lanoxin] 125 MCG tablet 0.125 mg PO DAILY Qty: 0 RF: 0 furosemide 40 mg tablet 40 mg PO DAILY RF: 0 potassium chloride 10 mEq tablet extended release 10 meq PO BID RF: 0 levothyroxine 150 mcg tablet 150 mcg PO DAILY RF: 0 oxycodone 5 mg tablet 5 mg PO Q4-6H PRN (Reason: pain) RF: 0 Eliquis 5 mg tablet 5 mg PO BID RF: 0 sennosides [senna] 8.6 mg Tablet 17.2 mg PO BID RF: 0 acetaminophen 325 mg Tablet 975 mg PO TID RF: 0 melatonin 3 mg Tablet 3 mg PO BEDTIME RF: 0 cephalexin 500 mg Capsule 500 mg PO BID RF: 0 magnesium hydroxide [Milk of Magnesia] 400 mg/5 mL Suspension 2,400 mg PO PRN PRN (Reason: Constipation) RF: 0 bisacodyl 10 mg Suppository 10 mg VT PRN PRN (Reason: Constipation) RF: 0 Fleet Enema 19-7 gram/118 mL Enema 118 ml VT PRN PRN (Reason: Constipation) RF: 0 bisacodyl 5 mg Tablet 5 - 10 mg PO PRN PRN (Reason: mild to severe constipation) RF: 0 Referrals: Patrice Hogue MD [Primary Care Provider] -
--- NOTE | 2019-05-03 10:39 | DI.RAD.S_ITS ---
PROCEDURE: XR PELVIS 1-2V INDICATIONS: right hip infection TECHNIQUE: 2 view(s) of the pelvis acquired. COMPARISON: [facility], CT, CT ABDOMEN PELVIS W CON, 04/14/2019, 17:18. [facility], CR, PELVIS 1 OR 2 VIEWS, 08/19/2011, 14:50. FINDINGS: Bones: Unchanged appearance of chronic right hip deformity and postsurgical change. Severe left hip degenerative osteoarthritis is present. Soft tissues: Visualized bowel gas pattern is normal. No suspicious soft tissue calcifications. Partially visualized ureterovesicular stent is noted on the left. IMPRESSION: Chronic appearance right hip deformity and postsurgical change. If concern for infection exists, MRI is recommended. Dictated by: Fabiana Gomez M.D. on 05/03/2019 at 11:05 Approved by: Fabiana Gomez M.D. on 05/03/2019 at 11:07
[2019-05-03 11:02] LABS: Add Manual Diff / Slide Review NO; Basophils Absolute Auto 0 /uL (0-100); Basophils Percent Auto 0.3 % (0-2); Bilirubin Urine UA NEGATIVE (NEGATIVE); Color Urine UA YELLOW; Eosinophils Absolute Auto 0 /uL (0-450); Eosinophils Percent Auto 0.3 % (2-4); Glucose Urine UA NEGATIVE (Negative); Hematocrit 37.1 % (41-53); Hemoglobin 12.2 g/dL (13.5-17.5); Ketones Urine UA NEGATIVE (NEGATIVE); Leukocyte Esterase Urine UA 2+ (NEGATIVE); Lymphocytes Absolute Auto 400 /uL (1100-4500); Lymphocytes Percent Auto 3.6 % (25-40); Mean Corpuscular HGB Conc 32.8 % (30-36); Mean Corpuscular Hemoglobin 30.9 PG (26-34); Mean Corpuscular Volume 94.4 fL (80-100); Monocytes Absolute Auto 800 /uL (0-900); Monocytes Percent Auto 6.5 % (3-14); Neutrophils Absolute Auto 10800 /uL (1500-7000); Neutrophils Percent Auto 89.3 % (50-75); Nitrite Urine UA POSITIVE (Negative); Occult Blood Urine UA 3+ (Negative); Platelet Count 174 X10^3/uL (150-400); Protein Urine UA 2+ (Negative); Red Blood Cell Count 3.93 X10^6/uL (4.5-5.9); Red Cell Distribution Width 15.6 % (11.6-14.8); Urobilinogen Urine UA 0.2 E.U./dL (0.2); White Blood Cell Count 12.1 X10^3/uL (4.5-11.0); pH Urine UA 5.5 (4.5-8.0)
[2019-05-03 11:08] LABS: INR 1.3 (0.9-1.3); Prothrombin Time 15.3 SECONDS (10.1-12.7)
[2019-05-03 11:09] LABS: Appearance Urine UA Slightly Cloudy
[2019-05-03 11:10] LABS: PTT Partial Thromboplastin Tim 38 SECONDS (26.4-36.2)
[2019-05-03 11:13] LABS: RBC Urine 30-100/HPF (0-5/HPF)
[2019-05-03 11:14] LABS: Bacteria Urine Many (>30); WBC Urine 30-100/HPF (0-5/HPF)
[2019-05-03 11:15] LABS: Alanine Aminotransferase 15 IU/L (<50); Albumin 4.2 g/dL (3.5-5.0); Albumin Globulin Ratio 1.2 (1.0-2.8); Alkaline Phosphatase 94 U/L (38-126); Aspartate Aminotransferase 28 IU/L (17-59); BUN Creatinine Ratio 24.2 (6-22); Bilirubin Total 1.2 mg/dL (0.2-1.3); Blood Urea Nitrogen 29 mg/dL (9-20); Calcium 9.4 mg/dL (8.4-10.2); Carbon Dioxide 33 mmol/L (22-32); Chloride 99 mmol/L (98-107); Globulin 3.5 g/dL (1.7-4.1); Glucose 119 mg/dL (80-110); HEMOLYSIS < 15 (0-50); Lipase 83 U/L (23-300); Potassium 4.8 mmol/L (3.4-5.1); Sodium 138 mmol/L (137-145); Total Protein 7.7 g/dL (6.3-8.2)
[2019-05-03 11:16] LABS: Lactate (Lactic Acid) 1.7 mmol/L (0.7-2.1)
--- NOTE | 2019-05-03 11:21 | DI.CT.S_ITS ---
PROCEDURE: CT ABDOMEN PELVIS W CON INDICATIONS: Generalized abdominal pain and fever TECHNIQUE: After the administration of intravenous contrast, 5 mm thick sections acquired from the diaphragm to the symphysis. 5 mm coronal and sagittal reformats were acquired. For radiation dose reduction, the following was used: automated exposure control, adjustment of mA and/or kV according to patient size. COMPARISON: [facility], CT, CHEST ABDOMEN PELVIS WITH CONTRAST, 08/24/2011, 13:02. [facility], CT, CT ABDOMEN PELVIS W CON, 04/14/2019, 17:18. FINDINGS: Image quality: Diagnostic, with note made of motion artifact. There is streak artifact seen through the upper abdomen. ABDOMEN: Lung bases: Lung bases are clear. Heart size is moderately enlarged. Coronary artery calcifications are seen. Solid organs: Liver is normal in size and enhancement. Gallbladder appears small and shrunken. Biliary system is non dilated. Pancreas enhances normally. Spleen is normal in size and enhancement. No adrenal nodules. Kidneys demonstrate normal size and enhancement. There is a left-sided double-J stent seen. A right-sided percutaneous nephrostomy can be seen. There is moderate left-sided hydronephrosis is seen. Along the posterior aspect of the right kidney, there is a water density simple appearing cyst seen that measures 5.5 centimeters. Peritoneum and bowel: Bowel loops demonstrate normal wall thickness and caliber. No free fluid or air. There is a moderate amount of stool seen within the colon. Nodes and vessels: No retroperitoneal or mesenteric adenopathy by size criteria. Aorta and inferior vena cava are normal in size. An IVC filter is seen. Atherosclerotic calcification is noted. Miscellaneous: No ventral hernias. PELVIS: Genitourinary: A Forrest catheter is seen. Miscellaneous: No inguinal hernias or adenopathy. Bones: No suspicious bony lesions. No vertebral body compression fractures. 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 Degenerative changes are seen throughout, including involving the contralateral left hip and the lower lumbar spine. IMPRESSION: There is a moderate amount of stool seen within the colon. Please correlate with an underlying history of constipation. Right proximal femur chronic fracture, with absence of the right proximal femur and advanced degenerative change. Incidental note is made of: Moderate cardiomegaly Atherosclerotic calcification, including coronary artery calcification Left-sided double-J stent with moderate left-sided hydronephrosis Right-sided percutaneous nephrostomy 5.5 cm right kidney simple cyst IVC filter Forrest catheter Dictated by: Maximus Gonzalez M.D. on 05/03/2019 at 10:56 Approved by: Maximus Gonzalez M.D. on 05/03/2019 at 11:04
[2019-05-03 11:23] LABS: Digoxin 0.5 ng/mL (0.8-2.0)
[2019-05-03] MEDS: CEFTRIAXONE 1 GM/50 ML FROZ.PIGGY IV (11:28)
[2019-05-03] MEDS: SODIUM CHLORIDE 0.9% 1,000 ML 1000 ML IV ×2 (11:28→18:54)
[2019-05-03 11:29] LABS: Appearance Urine UA CLOUDY; Bilirubin Urine UA NEGATIVE (NEGATIVE); Color Urine UA RED; Glucose Urine UA NEGATIVE (Negative); Ketones Urine UA NEGATIVE (NEGATIVE); Leukocyte Esterase Urine UA 3+ (NEGATIVE); Nitrite Urine UA NEGATIVE (Negative); Occult Blood Urine UA 3+ (Negative); Protein Urine UA 2+ (Negative); Urobilinogen Urine UA 0.2 E.U./dL (0.2)
[2019-05-03 11:30] LABS: Procalcitonin 0.12 ng/mL (<0.5)
[2019-05-03 11:40] LABS: Bacteria Urine Moderate (10-30); Culture Indicated Urine Specimen Cultured; RBC Urine >100/HPF (0-5/HPF); WBC Urine 30-100/HPF (0-5/HPF)
[2019-05-03 11:51] LABS: Thyroid Stimulating Hormone 4.88 uIU/mL (0.47-4.68)
[2019-05-03] MEDS: VANCOMYCIN 1,000 MG/200 ML PIGGYBACK 200 MG IV (12:09)
--- NOTE | 2019-05-03 13:08 | DI.CT.S_ITS ---
PROCEDURE: CT HEAD/BRAIN WO CON INDICATIONS: Altered mental status TECHNIQUE: Noncontrast 4.5 mm thick angled axial sections acquired from the foramen magnum to the vertex, with coronal and sagittal reformats. For radiation dose reduction, the following was used: automated exposure control, adjustment of mA and/or kV according to patient size. COMPARISON: [facility], CT, HEAD WITHOUT CONTRAST, 08/19/2011, 14:30. [facility], CT, BRAIN W/O CONTRAST, 11/02/2013, 12:24. FINDINGS: Image quality: IV contrast was given earlier in the day, which limits evaluation for detection of subtle intracranial hemorrhage CSF spaces: Basal cisterns are patent. No extra-axial fluid collections. The ventricles are symmetric in size and shape. Brain: No intracranial masses. No large amount of intracranial hemorrhage is detected. There is cerebral volume loss for age, with resultant ventricular and sulcal prominence. There are periventricular and deep white matter chronic small vessel ischemic changes. There is intracranial internal carotid artery atherosclerosis. Skull and face: Calvarium and visualized facial bones appear intact, without suspicious lesions. Sinuses: Fluid with internal calcification can be seen involving the sphenoid sinus. Visualized sinuses and mastoids are otherwise clear. IMPRESSION: Limited study demonstrating no significant intracranial abnormality for age. Note is made of age-appropriate brain parenchymal volume loss and chronic small vessel ischemic changes. Focal sphenoid sinus disease noted, which is more prominent than on prior studies. Dictated by: Maximus Gonzalez M.D. on 05/03/2019 at 12:46 Approved by: Maximus Gonzalez M.D. on 05/03/2019 at 12:49
[2019-05-03] MEDS: ACETAMINOPHEN 325 MG TABLET 650 MG PO (14:00)
[2019-05-03] MEDS: LIDOCAINE 2% (UROJET) 5 ML GEL TOP (14:33)
--- NOTE | 2019-05-03 14:35 | PC.NURSE ---
Urinary catheter replaced per MD order. Pt tolerated well.
[2019-05-03] MEDS: OXYCODONE IR 5 MG TABLET PO ×2 (16:46→20:31)
[2019-05-03] MEDS: levoFLOXacin 750 MG/150 ML PIGGYBACK 100 MG IV (16:46)
[2019-05-03] MEDS: SODIUM CHLORIDE 0.9% 1,000 ML 75 ML IV (17:36)
--- NOTE | 2019-05-03 17:48 | PC.NURSE ---
tachypnea noted however pt is able to speak in full sentences and states she does not feel short of breath. Dr. Laws aware of temp.
--- NOTE | 2019-05-03 18:05 | DI.RAD.S_ITS ---
PROCEDURE: XR CHEST 1V INDICATIONS: tachypnea, verbalized increased shortness of breath. TECHNIQUE: One view of the chest was acquired. COMPARISON: [facility], CR, XR CHEST 1V, 05/03/2019, 10:40. FINDINGS: Surgical changes and devices: None. Lungs and pleura: Persistent appearance of retrocardiac and left basilar opacity. Mediastinum: Mediastinal contours appear normal. Heart size is mildly enlarged. Bones and chest wall: No suspicious bony lesions. Overlying soft tissues appear unremarkable. IMPRESSION: Persistent retrocardiac and left basilar opacity, minimally improved compared to prior exam. Finding is suggestive of airspace disease such as pneumonia with superimposed effusion. Dictated by: Fabiana Gomez M.D. on 05/03/2019 at 18:34 Approved by: Fabiana Gomez M.D. on 05/03/2019 at 18:34
--- NOTE | 2019-05-03 18:21 | PC.NURSE ---
Pt now w/ worsening shortness of breath over the past 45 min. States 9/10 (0= run a marathon and 10 = completely unable to breath). BS crackles on left lower and decreased on right lower. Repeat chest x ray & Repeat ABG pending. Dr. Laws aware. Noted hypotension.
[2019-05-03 18:40] LABS: B Type Natriuretic Peptide 286 (<100)
[2019-05-03 18:50] LABS: Fractionated Inspired Oxygen 0.21; HCO3 ABG 30 mmol/L (22-26); Oxygen Saturation ABG 93 % (95-100); PCO2 ABG 37.7 mmHg (35-45); PO2 ABG 61 mmHg (80-100); TCO2 ABG 31 mmol/L (21-31)
[2019-05-03] MEDS: FUROSEMIDE 40 MG/4 ML VIAL IV (19:11)
[2019-05-03 19:47] LABS: Lactate (Lactic Acid) 1.3 mmol/L (0.7-2.1)
[2019-05-03 20:00] LABS: Troponin I 0.088 ng/mL (0.01-0.034)
--- NOTE | 2019-05-03 21:09 | PC.NURSE ---
Patient vomiting coffee ground emesis. Provider called to bedside. Specimen collected for occult blood. Verbal orders for protonix and zofran.
--- NOTE | 2019-05-03 21:17 | PC.NURSE ---
Pt suddenly started vomiting large amounts of brown tinged fluid. Medicated w/ zofran and protonix iv.
[2019-05-03] MEDS: PANTOPRAZOLE 40 MG VIAL 80 MG IV (21:23)
[2019-05-03] MEDS: ONDANSETRON 4 MG/2 ML INJ IV (21:24)
[2019-05-03] MEDS: MORPHINE 2 MG/ML INJ (21:24)
[2019-05-04 09:43] LABS: Acinetobacter baumannii Not Detected (Not Detect); Enterococcus species Not Detected (Not Detect); Listeria monocytogenes Not Detected (Not Detect); Staphylococcus species Not Detected (Not Detect); Streptococcus agalactiae (Gr B Not Detected (Not Detect); Streptococcus pneumonia Not Detected (Not Detect); Streptococcus pyogenes (Gr A) Not Detected (Not Detect); Streptococcus species Not Detected (Not Detect)
[2019-05-04 09:44] LABS: Candida albicans Not Detected (Not Detect); Candida glabrata Not Detected (Not Detect); Candida krusei Not Detected (Not Detect); Candida parapsilosis Not Detected (Not Detect); Candida tropicalis Not Detected (Not Detect); E. coli Not Detected (Not Detect); Enterobacter cloacae complex Not Detected (Not Detect); Enterobacteriaceae species Not Detected (Not Detect); Haemophilus influenzae Not Detected (Not Detect); KPC (carbapenem-resist gene) Not Detected (Not Detect); Neisseria meningitidis Not Detected (Not Detect); Proteus species Not Detected (Not Detect); Pseudomonas aeruginosa Detected (Not Detect); Serratia marcescens Not Detected (Not Detect)
[2019-05-04 16:50] LABS: Fractionated Inspired Oxygen 0.21; HCO3 ABG 28 mmol/L (22-26); Oxygen Saturation ABG 88 % (95-100); PCO2 ABG 36.9 mmHg (35-45); PO2 ABG 50 mmHg (80-100); TCO2 ABG 29 mmol/L (21-31); pH ABG 7.49 (7.35-7.45)
== END 2019-05-03 21:28 | disposition short-term general hospital (02) ==
PROVIDERS: Emergency Provider Emergency Medicine; PCP Student in an Organized Health Care Education/Training Program
DX: N39.0 Urinary tract infection, site not specified (principal); A41.9 Sepsis, unspecified organism; R10.9 Unspecified abdominal pain
CPT/HCPCS: 36415; 36600; 51701; 51705; 70450; 71045; 72170; 74177; 80053; 80162; 81001; 82805; 83605; 83690; 83880; 84145; 84443; 84484; 85025; 85610; 85730; 87040; 87077; 87086; 87150; 87186; 87205; 93005; 96361; 96365; 96367; 96375; 99285; C9113; J1940; J1956; J2270; J2405; Q9967